=== PATIENT | female | born 1945 | race Two or more races ===

== ENCOUNTER 2024-08-08 18:09 | Emergency (ER) | payer OTHER, BC ==
[~2024-08-08] VITALS: Ht 162.6 cm; Wt 74.8 kg
[2024-08-08] MEDS ORDERED: PEPCID AC20 MG PO (20:45)
[2024-08-08] MEDS ORDERED: CEPHALEXIN750 MG PO (20:45)
== END 2024-08-08 21:08 | disposition home or self-care (01) ==
LOC: ER 18:12
DX: S01.01XA Laceration without foreign body of scalp, initial encounter (principal); X58.XXXA Exposure to other specified factors, initial encounter; Y93.89 Activity, other specified; Y92.89 Other specified places as the place of occurrence of the external cause; Y99.8 Other external cause status; I10 Essential (primary) hypertension